=== PATIENT | female | born 1995 | race Caucasian/White ===

== ENCOUNTER → 2017-08-31 14:57 | Outpatient (CLI) | payer OTHER, MEDICAID, SELFPAY ==
--- NOTE | 2017-08-31 15:03 | US_ITS ---
STUDY: SECOND AND THIRD TRIMESTER OBSTETRICAL ULTRASOUND REASON FOR EXAM: Female, 22 years old. Evaluation of anatomy LMP: 04/11/2017 TECHNIQUE: Transabdominal probe was used PRIOR ULTRASOUND: None. FINDINGS: There is a single intrauterine fetus. The fetus is in a cephalic presentation. There is demonstrated cardiac activity with a heart rate of 155 bpm. There is a normal amniotic fluid volume. The largest amniotic fluid pocket measures 7.7 x 3.4 cm cm. The amniotic fluid index (MARELY) is normal. The placenta is posterior There are Grade 0 placental changes. The cervix measures 5.6 cm in length. The bilateral adnexal regions are normal. BIOMETRY: BPD: 4.7 cm: 20 weeks, 2 days HC: 18.2 cm: 20 weeks, 5 days AC: 15.4 cm: 20 weeks, 4 days FL: 3.6 cm: 21 weeks, 4 days CI: 0.74 FL/BPD: 0.77 FL/HC: FL/AC: 0.24 HC/AC: 1.19 age by current US: 20 weeks, 6 days. TRUPTI by current US 01/12/2018 Estimated weight: 86 grams, +/- 56 grams, 80 %. age by LMP 20 weeks, 2 days. TRUPTI by LMP: 01/16/2018 . ANATOMY: Gender: Cranium: Normal lateral ventricles. Normal choroid plexus. Normal cerebellum. Normal cisterna magna. Normal face, nose and lips. Chest: Normal 4-chamber heart. Abdomen/Pelvis: Normal diaphragm. Normal stomach. Normal abdominal wall. Normal cord insertion. Normal 3 vessel cord. Normal kidneys. Normal bladder. Spine: Normal cervical spine. Normal thoracic spine. Normal lumbar spine. Normal sacrum. Extremities: Normal bilateral upper extremities. Normal bilateral lower extremities. US/OB Anatomy Scan IMPRESSION: A live intrauterine in a cephalic presentation with composite measurements averaging out to be equivalent to 20 weeks 6 days +/- 5 days with an expected date of delivery of 01/12/2018. There is an estimated weight of 28 6 g Electronically Signed: Joey Dukes, at 6:22 EDT Tel , Service support ,
== END ==
PROVIDERS: PCP Internal Medicine; Visit Provider Obstetrics & Gynecology
DX: Z34.90 Encounter for supervision of normal pregnancy, unspecified, unspecified trimester (principal)
CPT/HCPCS: 76805

== ENCOUNTER → 2017-10-14 14:25 | Outpatient (CLI) | payer OTHER, MEDICAID, SELFPAY ==
[2017-10-14 16:19] LABS: Glucose Challenge Gest 1H 50g 90 mg/dL (70-140)
== END ==
PROVIDERS: Family Provider Internal Medicine; PCP Internal Medicine; Visit Provider Obstetrics & Gynecology
DX: Z34.80 Encounter for supervision of other normal pregnancy, unspecified trimester (principal)
CPT/HCPCS: 36415; 82950

== ENCOUNTER → 2017-11-10 11:36 | Outpatient (CLI) | payer OTHER, MEDICAID, SELFPAY ==
[2017-11-10 12:24] LABS: Absolute Lymphocyte Count 1.59 X10^3/ul (0.83-4.51); Absolute Neutrophil Count 11.7 X10^3/uL (2.0-7.7); Basophil# 0.02 X10^3/uL; Basophil% 0.1 % (0-1); Eosinophil# 0.08 X10^3/uL; Eosinophils% 0.6 % (0-5); Hematocrit 30.7 % (37-47); Hemoglobin 10.6 g/dl (12.0-15.0); Lymphocyte # 1.59 X10^3/ul (4.0); Mean Corp Hgb Conc 34.5 g/gl (32-36); Mean Corpuscular Hgb 32.1 pg (27.0-32.0); Mean Platelet Vol. 9.4 fl (6.2-12.0); Monocyte# 0.96 X10^3/uL; Monocyte% 6.6 % (0-10); Neutrophil # 11.73 X10^3/uL (2.7-7.7); Neutrophil % 81.2 % (47-70); Platelet Count 256 K/mm3 (150-450); RBC Distribution Width CV 12.8 % (11.6-14.6); RBC Distribution Width SD 41.9 fl (35.1-43.9); White Blood Count 14.5 K/mm3 (4.4-11.0)
[2017-11-10 12:36] LABS: POSITIVE COUNT NO; POSITIVE DIFFERENTIAL NO; POSITIVE MORPHOLOGY NO
== END ==
PROVIDERS: Nurse Practitioner Women's Health; Family Provider Internal Medicine; PCP Internal Medicine; Visit Provider Obstetrics & Gynecology
DX: Z34.80 Encounter for supervision of other normal pregnancy, unspecified trimester (principal)
CPT/HCPCS: 36415; 85025

== ENCOUNTER 2017-12-14 09:55 | Outpatient (CLI) | payer OTHER, MEDICAID, SELFPAY ==
[2017-12-14 10:07] VITALS: BMI 39.3
[2017-12-14 10:40] LABS: Color, Urine Straw (Yellow); Glucose, Dipstick Normal (Normal); Ketone-Dipstick Negative (Negative); Leukocyte Esterase-Dipstick 25 /ul (Negative); Nitrite-Dipstick Negative (Negative); Occult Blood-Urine 10 /ul (Negative); Protein-Dipstick Negative (Negative); Specific Gravity, Urine 1.005 (1.002-1.030); Urine Bilirubin Dipstick Negative (Negative); Urine Clarity Clear (Clear); Urine Urobilinogen Normal (Normal)
[2017-12-14 11:00] LABS: ROM Internal Control Test YES-OK TO RESULT pt. (Internal QC); ROM Patient Test Negative (Negative)
--- NOTE | 2017-12-14 11:24 | US_ITS ---
STUDY: SECOND AND THIRD TRIMESTER OBSTETRICAL ULTRASOUND - LIMITED REASON FOR EXAM: Female, 22 years old. well-being. MARELY. LMP: April 11, 2017. PRIOR ULTRASOUND: August 31, 2017. TECHNIQUE: Transabdominal ultrasound evaluation was performed. FINDINGS: There is a single intrauterine fetus. The fetus is in a breech presentation. There is demonstrated cardiac activity with a heart rate of 150 bpm. There is a normal amniotic fluid volume. The largest amniotic fluid pocket measures 3.91 cm. The amniotic fluid index (MARELY) is 10.62 cm. The placenta is posterior in location and is not low lying. There are Grade 2 placental changes. The cervix is obscured Age by LMP: 35 weeks, 2 days. TRUPTI by LMP: January 16, 2018. age by prior US: 35 weeks, 6 days. TRUPTI by prior US: January 12, 2018. US/OB Limited (No Biometrics) IMPRESSION: 1. Live single intrauterine in a breech presentation. 2. heart rate of 150 bpm. 3. Posterior grade 2 placenta. 4. Breech presentation. Electronically Signed: Hilario Lozano DO at 13:59 EDT Tel [phone], Service support ,
--- NOTE | 2017-12-18 02:45 | OB.TRI.NOTE ---
History of Present Illness Date of Service: 12/14/17 Was patient seen by the physician?: No Reason For Visit: R/O LABOR Allergies No Known Allergies Allergy (Verified 12/14/17 10:40) - Pertinent Past Medical History Medical History: Past Medical History (Last Reviewed 12/08/17 @ 16:20 by Claudine Gonzalez) Migraine Surgical History: Past Surgical History (Last Reviewed 12/08/17 @ 16:20 by Claudine Gonzalez) History of delivery (Acute) repeat csection January 11 Hx of blood transfusion with last CS NST - FHR Rate Baby A Baseline: 130 Variability:: Moderate Accelerations:: 15 x 15 Decelerations:: None NST Reactive:: Yes FHR Category:: Category I Uterine Activity:: q3-5 Impression/Plan false labor no cervical change dc home
== END 2017-12-14 13:55 | disposition home health service (06) ==
LOC: WPOUT 10:05 → WP 10:05
PROVIDERS: Family Provider Internal Medicine; PCP Internal Medicine; Visit Provider Obstetrics & Gynecology
DX: O47.9 False labor, unspecified (principal); Z3A.00 Weeks of gestation of pregnancy not specified
CPT/HCPCS: 59025; 59050; 76815; 81002; 84112; 99218; G0378

== ENCOUNTER → 2017-12-21 17:51 | Outpatient (CLI) | payer OTHER, MEDICAID, SELFPAY ==
[2017-12-21 19:38] LABS: Group B Strep DNA By PCR Negative (Negative); Internal Control PASS; Probe Check PASS; Specimen Processing Control PASS
== END ==
PROVIDERS: Family Provider Internal Medicine; PCP Internal Medicine; Visit Provider Obstetrics & Gynecology
DX: Z34.80 Encounter for supervision of other normal pregnancy, unspecified trimester (principal)
CPT/HCPCS: 87081; 87653

== ENCOUNTER 2018-01-02 07:25 | Inpatient (IN) | payer OTHER, MEDICAID, SELFPAY ==
[2018-01-02] VITALS (22 sets, daily range): BP systolic 114–138; BP diastolic 56–86; PULSE 57–89; RESP 12–20; TEMP 36.2–36.7; O2SAT 97–100; BMI 39.4
[2018-01-02] MEDS: Lactated Ringers 1,000 ML 999 ML IV (07:47)
[2018-01-02 08:08] LABS: Absolute Lymphocyte Count 1.75 X10^3/ul (0.83-4.51); Absolute Neutrophil Count 9.8 X10^3/uL (2.0-7.7); Basophil# 0.01 X10^3/uL; Basophil% 0.1 % (0-1); Eosinophil# 0.09 X10^3/uL; Eosinophils% 0.7 % (0-5); Hematocrit 33.2 % (37-47); Hemoglobin 11.3 g/dl (12.0-15.0); Lymphocyte # 1.75 X10^3/ul (4.0); Lymphocyte % 13.9 % (19-41); Mean Corpuscular Hgb 31.2 pg (27.0-32.0); Mean Corpuscular Volume 91.7 fL (81-99); Mean Platelet Vol. 9.2 fl (6.2-12.0); Monocyte# 0.83 X10^3/uL; Monocyte% 6.6 % (0-10); Neutrophil # 9.82 X10^3/uL (2.7-7.7); Neutrophil % 78.3 % (47-70); Platelet Count 259 K/mm3 (150-450); RBC Distribution Width CV 13.9 % (11.6-14.6); RBC Distribution Width SD 46.2 fl (35.1-43.9); Red Blood Count 3.62 M/mm3 (4.2-5.4); White Blood Count 12.6 K/mm3 (4.4-11.0)
--- NOTE | 2018-01-02 08:08 | HP.PCM_ITS ---
- Problem List (1) PROM (premature rupture of membranes) Status: Acute (2) Anemia affecting Status: Acute Qualifiers: Comment: Add Fe daily (3) Contraception Status: Acute Qualifiers: Comment: Plans paragard IUD at 6 wk pp visit (4) Tobacco abuse Status: Chronic Comment: encouraged cessation (5) Migraine headache Status: Chronic Qualifiers: Comment: improved with chiropractor (6) screening encounter Status: Acute Comment: 1st trim SSQ results to scan (7) History of delivery Status: Acute Comment: repeat csection January 11 Hx of blood transfusion with last CS (8) History of pre-eclampsia in prior , currently in first trimester Status: Acute Comment: recommend baseline labs. 81 mg aspirin (9) Supervision of other normal Status: Acute Comment: PRR TRUPTI 01/16/18 girl [facility] KAVITHA fletcher Draw CBC at appointment on 11/11/17 History Date of Admission: 01/02/18 Final TRUPTI: 01/16/18 Gestational age: 38 Weeks and 0 Days History of this : This is a 22 year-old, at 38 weeks gestational age with PROM. clear fluid .5 cm dilated irregular ctx declines Medical History: Medical History (Last Reviewed 12/28/17 @ 15:41 by Linda Riggs) Migraine G43.909 Surgical History: Surgical History (Last Reviewed 12/28/17 @ 15:41 by Linda Riggs) History of delivery (Acute) Z98.891 repeat csection January 11 Hx of blood transfusion with last CS Allergies No Known Allergies Allergy (Verified 12/28/17 15:40) Home Medications: Home Medications acetaminophen 325 mg tablet 650 mg PO Q4H PRN 07/17/17 Ferrous Sulfate 325 mg PO DAILY 12/14/17 vitamin #56-iron 35 mg and 5 mg-folic acid 1 mg-dha capsule 1 cap PO QHS 01/02/18 Smoking Status: Light Smoker (<10/day) Alcohol: None Number of Fetus(es): 1 Heart Tracin History Past Pregnancies: Past Pregnancies Delivery Date Name GA/Weeks Outcome Route Weight Infant Gender Labor Length Anesthesia Delivery Location Provider FOB Labs: Mom's Labs & Results 01/02/18 01/02/18 07:47 07:47 WBC Pending RBC Pending Hgb Pending Hct Pending MCV Pending MCH Pending MCHC Pending RDW Pending RDW Differential Pending Plt Count Pending Neut % (Auto) Pending Absolute Neuts (auto) Pending Total Counted Pending Blood Type Pending Antibody Screen Pending Social History Smoking Status Light Smoker (<10/day) Expected Delivery Method: Repeat Section Review of Systems Constitutional: Denies: Fever, Malaise Eyes: Denies: Blurred vision, Vision Change HEENT: Denies: Head Aches, Visual Changes Cardiovascular: Denies: Chest Pain, Palpitations Respiratory: Denies: Cough, Shortness of Breath, Wheezing Gastrointestinal: Denies: Abdominal Pain, Diarrhea, Nausea, Vomiting Genitourinary: Denies: Dysuria, Hematuria Musculoskeletal: Denies: Joint Pain, Muscle pain Skin: Denies: Lesions, Rash Neurological: Denies: Blurred vision, Focal weakness, Headaches Psychiatric: Denies: Anxiety, Depression Endocrine: Denies: Heat/ Cold Intolerance Hematologic/ Lymphatic: Denies: Easy Bruising, Easy Bleeding Physical Exam General: Alert, Cooperative, No apparent distress HEENT: Atraumatic, Normocephalic. Negative for: Thyromegaly, Lymphadenopathy Cardiovascular: Regular rate Lungs: Normal air movement Abdomen: Soft, Non Tender, Gravid Neurological: Deep Tendon Reflexes 2+/4 and Symmetrical, Neuro grossly intact. Negative for: Clonus MS ACCESS DATABASE DEVELOPER: Normal external genitalia. Negative for: Vulvar lesions Estimated gestational size: Appropriate for gestational size Presentation: Cephalic Assessment/Plan All Active Problems (Last Reviewed 12/28/17 @ 15:41 by Linda Riggs) PROM (premature rupture of membranes) (Acute) URI (upper respiratory infection) (Acute) Anemia affecting (Acute) Contraception (Acute) screening encounter (Acute) History of delivery (Acute) History of pre-eclampsia in prior , currently in first trimester (Acute) Supervision of other normal (Acute) This is a 22 year-old, at 38 weeks gestational age RPOM plans RLTCS plan RLTCS
[2018-01-02 08:16] LABS: POSITIVE COUNT NO; POSITIVE DIFFERENTIAL NO; POSITIVE MORPHOLOGY NO
[2018-01-02] MEDS: Sodium Citrate/Citric Acid 30 ML UDC PO (08:29)
[2018-01-02] MEDS: Lactated Ringers 1,000 ML 100 ML IV ×2 (08:30→18:20)
--- NOTE | 2018-01-02 08:30 | OP.PCM_ITS ---
Problem List (1) PROM (premature rupture of membranes) Status: Acute (2) Anemia affecting Status: Acute Qualifiers: Comment: Add Fe daily (3) Contraception Status: Acute Qualifiers: Comment: Plans paragard IUD at 6 wk pp visit (4) Tobacco abuse Status: Chronic Comment: encouraged cessation (5) Migraine headache Status: Chronic Qualifiers: Comment: improved with chiropractor (6) screening encounter Status: Acute Comment: 1st trim SSQ results to scan (7) History of delivery Status: Acute Comment: repeat csection January 11 Hx of blood transfusion with last CS (8) History of pre-eclampsia in prior , currently in first trimester Status: Acute Comment: recommend baseline labs. 81 mg aspirin (9) Supervision of other normal Status: Acute Comment: PRR TRUPTI 01/16/18 girl [facility] fletcher Draw CBC at appointment on 11/11/17 Report of Operation Date of Procedure: 01/02/18 Pre-Operative Diagnosis: PROM declined TOLAC Post-Operative Diagnosis: same Surgery/Procedure Performed:: RLTCS Description of Surgical Findings:: normal uterus tubes ovaries registered health nurse: Melissa Ayon Type of Anesthesia:: Spinal Special Medications: ancef Specimen's removed: male infant Drains: major Estimated Blood Loss (mL): 600 Fluids Replaced: crystalloid Description of Procedure: The patient is a 22-year-old at 38 weeks presented with premature rupture of membranes declined trial of labor after for a repeat . Spinal anesthesia was placed without difficulty. Major catheter was placed. The patient was placed in the dorsal supine position with leftward tilt. Patient was prepped and draped in the normal sterile fashion. Pfannenstiel skin incision was made with the scalpel and carried through to the underlying layer of fascia with the scalpel. Fascia was nicked in the midline and the incision extended laterally. The rectus bellies were dissected off superiorly and inferiorly with out complication both sharply and bluntly. The peritoneum was entered digitally. The incision was stretched and a low transverse uterine incision was made with the scalpel. The infant's head was delivered atraumatically followed by the anterior and posterior shoulders without complication the rest of the infant delivered. The cord was clamped and cut and the infant was handed off to awaiting nurse. The placenta was delivered spontaneously immediately following and was noted to be intact and have a three- vessel cord. The uterus was exteriorized cleared of all clots and debris, and the incision was closed in a double layer closure using #1 Monocryl. The uterus was returned to the maternal abdomen and gutters were cleared of all clots and debris. The ovaries and fallopian tubes were noted to be within normal limits. The peritoneum was closed with 3-0 Monocryl in a running fashion. Fascia was closed with 0 PDS in a running fashion. Subcutaneous tissue was copiously irrigated and closed and the skin was closed with 3-0 Monocryl in a subcuticular fashion. Mepilex dressing were applied without complication. Patient was taken to recovery in stable condition. Grafts/Implants Used: none - Admit VTE Documentation VTE Present on Admission: No VTE Mechan Device Prophylaxis: SCD's
[2018-01-02] MEDS: Oxytocin 30 units/NS 500 ml 30 UNITS/500 ML IV.SOLN 167 UNITS IV (08:55)
[2018-01-02] MEDS: Cefazolin 2 GM in 0.9% Normal Saline 100 ML IV (08:55)
[2018-01-02] MEDS: Ondansetron 4 MG/2 ML Vial IV (09:05)
[2018-01-02] MEDS: Ketorolac 30 MG/ML Syringe IV ×3 (09:05→21:17)
[2018-01-02] MEDS: proMETHazine 25 MG/ML Syringe 12.5 MG IV (10:58)
[2018-01-03] VITALS (10 sets, daily range): BP systolic 116–123; BP diastolic 64–79; PULSE 74–93; RESP 16–18; TEMP 36.2–36.6; O2SAT 96–100
[2018-01-03] MEDS: Ketorolac 30 MG/ML Syringe IV ×5 (03:26→23:56)
[2018-01-03 05:30] LABS: Hematocrit 28.7 % (37-47); Hemoglobin 9.7 g/dl (12.0-15.0); Mean Corp Hgb Conc 33.8 g/gl (32-36); Mean Corpuscular Hgb 31.8 pg (27.0-32.0); Mean Corpuscular Volume 94.1 fL (81-99); Mean Platelet Vol. 9.4 fl (6.2-12.0); Platelet Count 224 K/mm3 (150-450); RBC Distribution Width CV 13.9 % (11.6-14.6); RBC Distribution Width SD 45.6 fl (35.1-43.9); Red Blood Count 3.05 M/mm3 (4.2-5.4); White Blood Count 10.4 K/mm3 (4.4-11.0)
[2018-01-03 05:35] LABS: Scan Indicated on CBC? Y/N NO
--- NOTE | 2018-01-03 07:29 | PCM.PN.OB ---
Patient Problems: Active and Suspected Problems (Last Reviewed 12/28/17 @ 15:41 by Linda Riggs) PROM (premature rupture of membranes) (Acute) Subjective: doing well no complaints no cp sob n v - Physical Exam General: Alert, Oriented x3 Vital Signs Temp Pulse Resp BP Pulse Ox 97.9 F 76 18 116/64 97 01/03/18 03:30 01/03/18 06:00 01/03/18 06:00 01/03/18 03:30 01/03/18 06:00 Oxygen Delivery Method Room Air Weight: 215 lb 9.793 oz Body Mass Index (BMI) 39.4 Intake and Output for Last 24 Hours 01/01/18 01/02/18 01/03/18 23:59 23:59 23:59 Intake Total 3882 / 3882 1047 / 1047 Output Total 2300 / 2300 1250 / 1250 Balance 1582 / 1582 -203 / -203 Laboratory Tests Past 24 Hrs 01/02/18 01/02/18 01/03/18 07:47 07:47 05:15 WBC 12.6 H 10.4 RBC 3.62 L 3.05 L Hgb 11.3 L 9.7 L Hct 33.2 L 28.7 L MCV 91.7 94.1 MCH 31.2 31.8 MCHC 34.0 33.8 RDW 13.9 13.9 RDW Differential 46.2 H 45.6 H Plt Count 259 224 MPV 9.2 9.4 Immature Gran % (Auto) 0.400 Neut % (Auto) 78.3 H Lymph % (Auto) 13.9 L [place] % (Auto) 6.6 Eos % (Auto) 0.7 Baso % (Auto) 0.1 Absolute Neuts (auto) 9.8 H Absolute Lymphs (auto) 1.75 Total Counted Not Reportable Blood Type B POSITIVE Antibody Screen NEGATIVE Medical Necessity - Tobacco Use Smoking Status: Current every day smoker Assessment/Plan All Active Problems (Last Reviewed 12/28/17 @ 15:41 by Linda Riggs) PROM (premature rupture of membranes) (Acute) URI (upper respiratory infection) (Acute) Anemia affecting (Acute) Contraception (Acute) screening encounter (Acute) History of delivery (Acute) History of pre-eclampsia in prior , currently in first trimester (Acute) Supervision of other normal (Acute) s/p RLTCS routine care doing well
[2018-01-03] MEDS: 0.9% Saline Lock 10 ML Syringe IV ×3 (08:42→23:56)
[2018-01-04] VITALS: BP 121/78; PULSE 94; RESP 17; O2SAT 98
[2018-01-04] MEDS: oxyCODONE 5 MG Tablet PO ×2 (00:10→08:25)
[2018-01-04] MEDS: Senna/Docusate Sodium 1 Tablet PO ×2 (00:10→08:26)
--- NOTE | 2018-01-04 08:23 | PN.OBGYN_ITS ---
Patient Problems: Active and Suspected Problems (Last Reviewed 12/28/17 @ 15:41 by Linda Riggs ) PROM (premature rupture of membranes) (Acute) Subjective: doingw ell no complaints - Physical Exam General: Alert, Oriented x3 Vital Signs Temp Pulse Resp BP Pulse Ox 97.4 F L 94 17 121/78 H 98 01/03/18 14:00 01/04/18 00:00 01/04/18 00:00 01/04/18 00:00 01/04/18 00:00 Oxygen Delivery Method Room Air Weight: 215 lb 9.793 oz Body Mass Index (BMI) 39.4 Intake and Output for Last 24 Hours 01/02/18 01/03/18 01/04/18 23:59 23:59 23:59 Intake Total 3882 / 3882 1047 / 1047 Output Total 2300 / 2300 2250 / 2250 Balance 1582 / 1582 -1203 / -1203 Medical Necessity - Tobacco Use Smoking Status: Current every day smoker Assessment/Plan All Active Problems (Last Reviewed 12/28/17 @ 15:41 by Linda Riggs) PROM (premature rupture of membranes) (Acute) URI (upper respiratory infection) (Acute) Anemia affecting (Acute) Contraception (Acute) screening encounter (Acute) History of delivery (Acute) History of pre-eclampsia in prior , currently in first trimester (Acute) Supervision of other normal (Acute) s/p RLTCS routine care doing well
--- NOTE | 2018-01-04 08:24 | DCINST_ITS ---
Discharge Diet: No Restrictions Discharge Activity: May Not Drive - for 2 weeks, May not drive while taking narcotic pain medications., May Shower, May Take a Tub Bath - in 7 days May resume sexual activity in: 4-6 weeks Lifting Restrictions: 20 pounds Additional Activity Instructions:: Nothing in the vagina for 4-6 weeks. You may return to work/school in 6 weeks. Call your doctor if your incision/area has: Continuous Slow Oozing, Sudden Increased Bleeding, Increased Pain/ Swelling, Increased Redness, Foul Smelling Discharge Call your doctor if you observe: Fever of 101 or Higher, Using more than one pad per hour - for 2 hours Suture Line Care: Avoid Pulling/Pushing, Avoid Pinching/Bending Cleanse incision/area with: Keep Dressing Clean & Dry Additional Instructions: If you experience any of the following, contact your healthcare provider. * Bleeding that soaks a pad every hour for 2 hours * Fever 100.4 or higher * Unrelieved incision or abdominal pain * Swelling, redness, discharge or bleeding from your incision or episiotomy site * Your incision begins to separate * Problems urinating (including inability to urinate or burning while urinating) . * Visual changes * Severe headache * Flu-like symptoms * Pain or redness in one of both of your breasts * Pain, warmth, tenderness or swelling in your legs, especially the calf area * Frequent nausea and vomiting * Symptoms of depression or anxiety If you experience any of the following, call 911 or go to the nearest Emergency Room. * Chest pain * Problems breathing * Seizure activity * Partial or complete paralysis of a body part, slurred speech, weakness or drooping of the face, or a sudden inability to walk or hold your balance Allergies/Adverse Reactions: Allergies No Known Allergies Allergy (Verified 12/28/17 15:40) Medications to take at Discharge acetaminophen 325 mg tablet 650 mg PO Q4H PRN 07/17/17 Ferrous Sulfate 325 mg PO DAILY 12/14/17 vitamin #56-iron 35 mg and 5 mg-folic acid 1 mg-dha capsule 1 cap PO QHS 01/02/18 Naproxen [Naprosyn] 250 - 500 mg PO Q8H PRN PRN #30 tab 01/04/18 Oxycodone HCl/Acetaminophen [Percocet 5-325] 1 - 2 tablet PO Q4H PRN PRN 7 Days #28 tablet 01/04/18 The following prescriptions were given: Oxycodone HCl/Acetaminophen [Percocet 5-325] 1 - 2 tablet PO Q4H PRN PRN 7 Days #28 tablet PRN Reason: Moderate-Severe pain Naproxen [Naprosyn] 250 - 500 mg PO Q8H PRN PRN #30 tab PRN Reason: MILD PAIN Follow-Up: Call to make an appointment with your doctor for an incision check in 1-2 weeks. You will also need a 6 week post- follow up appointment. Test results from this visit will be discussed in further detail at your follow- up appointment, if applicable. Please Follow Up With: Aliyah Mac MD - Call to make an appointment for an incision check in 1-2 [phone] When: You will need a post- check in 6 weeks. Primary Care Physician: Chito Rodriguez MD [Primary Care Provider] -
[2018-01-04 10:00] VITALS: BP 121/79; PULSE 78; RESP 16; TEMP 36.6
== END 2018-01-04 10:00 | disposition home or self-care (01) | DRG 766 ==
PROVIDERS: Admitting Provider Obstetrics & Gynecology; Family Provider Internal Medicine; PCP Internal Medicine; Visit Provider Obstetrics & Gynecology
DX: O42.92 Full-term premature rupture of membranes, unspecified as to length of time between rupture and onset of labor (principal); Z37.0 Single live birth; O34.211 Maternal care for low transverse scar from previous cesarean delivery; O99.334 Smoking (tobacco) complicating childbirth; Z3A.38 38 weeks gestation of pregnancy; Z87.59 Personal history of other complications of pregnancy, childbirth and the puerperium; O99.214 Obesity complicating childbirth; E66.01 Morbid (severe) obesity due to excess calories; Z68.39 Body mass index [BMI] 39.0-39.9, adult; O99.02 Anemia complicating childbirth; D64.9 Anemia, unspecified
CPT/HCPCS: 59025; 85025; 85027; 86850; 86900; 99218; J7120; A4216; G0378; J2405

== ENCOUNTER → 2018-02-11 18:17 | Outpatient (CLI) | payer OTHER, MEDICAID, SELFPAY ==
[2018-02-17 08:12] LABS: HPV Reflexed? NOT INDICATED
== END ==
PROVIDERS: Visit Provider Obstetrics & Gynecology
DX: Z12.4 Encounter for screening for malignant neoplasm of cervix (principal)
CPT/HCPCS: 88175; G0145

== ENCOUNTER → 2018-09-21 14:00 | Outpatient (CLI) | payer OTHER, MEDICAID, SELFPAY ==
[2018-09-21 08:57] VITALS: BMI 29.0
== END ==
PROVIDERS: Referring Provider Physician Assistant Surgical; Visit Provider Physician Assistant Surgical
DX: J02.9 Acute pharyngitis, unspecified (principal)
CPT/HCPCS: 87081

== ENCOUNTER → 2019-07-18 15:45 | Outpatient (CLI) | payer BC, MEDICAID, SELFPAY ==
[2019-07-18 15:20] VITALS: BMI 29.0
== END ==
PROVIDERS: PCP Internal Medicine; Referring Provider Nurse Practitioner Women's Health; Visit Provider Nurse Practitioner Women's Health
DX: N89.8 Other specified noninflammatory disorders of vagina (principal)
CPT/HCPCS: 87070; 87106; 87205

== ENCOUNTER 2020-12-28 19:21 | Emergency (ER) | payer OTHER, MEDICAID, SELFPAY ==
[2019-07-18 15:20] VITALS: BMI 29.0
[2020-12-28 19:28] VITALS: BP 148/68; PULSE 83; RESP 16; TEMP 36.6; O2SAT 98; BMI 30.2
--- NOTE | 2020-12-28 19:35 | RAD_ITS ---
STUDY: X-RAY - LEFT WRIST REASON FOR EXAM: Female, 25 years old. fall TECHNIQUE: 3 view(s) of the wrist were obtained. COMPARISON: None. FINDINGS: Normal visualized distal radius and ulna. Normal radiocarpal articulation. Normal distal radioulnar articulation. Normal carpal bones. Normal carpal articulations. Normal carpometacarpal articulation of the thumb. Normal second through fifth carpometacarpal articulations. Normal visualized metacarpal bones. The soft tissue structures are unremarkable. There is no demonstrated acute fracture. RAD/Wrist min 3 Views IMPRESSION: Normal x-ray examination of the wrist. Electronically Signed: Guille Rodriguez MD at 20:53 EDT , Service support ,
--- NOTE | 2020-12-28 19:58 | ED.RN ---
[facility] LEFT MESSAGE X2.
--- NOTE | 2020-12-28 21:55 | EX.ED.UPPERE ---
HPI History of Present Illness Chief Complaint: Upper Extremity Injury Informant: patient Narrative Narrative: Patient is a 25-year-old previously healthy female who presents to the emerge department for injury to left wrist. She states that she tripped over something at work and landed on her outstretched hand. She currently rates pain a 7 out of 10. She does not take anything for it. She denies any other injury. She not strike her head. No neck or back pain. No chest pain or shortness of breath. Any movement of the wrist seems to make it worse. She does get some pain radiating up the forearm. [facility] Medical History (Updated 12/28/20 @ 22:[address] Ko Lloyd DO) Anemia Migraine Home Medications fluconazole 150 mg tablet 150 mg PO .COMPLEX #2 tab 07/20/19 [Rx Last Taken Unknown] metronidazole 500 mg tablet 500 mg PO BID #14 tab 07/24/19 [Rx Last Taken Unknown] Allergy/AdvReac Type Severity Reaction Status Date / Time No Known Allergies Allergy Verified 12/28/20 19:31 Family History Mother Cancer pancreatic Father Hypertension Migraines Grandmother Migraines Uncle Migraines Aunt Migraines Surgical History History of History of delivery Social History Smoking Status: Current every day smoker tobacco type: cigarettes alcohol intake: current alcohol intake frequency: holidays/special occasions only Alcohol type: beer substance use type: does not use caffeine: No what type of physical activity do you participate in: walking frequency: daily seatbelt use: always do you feel safe at home: Yes additional social history: [id number] patient works at [employer] ED Constitutional Constitutional ED: Denies chills or fever(s) Eyes Eyes: Denies change in vision ENT ENT ED: Denies epistaxis or rhinorrhea Cardiovascular Cardiovascular: Denies chest pain or palpitations Respiratory/Chest Respiratory/Chest: Denies cough, dyspnea or dyspnea on exertion Gastrointestinal Gastrointestinal: Denies abdominal pain, diarrhea, nausea or vomiting Musculoskeletal Musculoskeletal: Denies back pain or neck pain Integumentary Denies rash Neurologic Neurologic: Denies dizziness, headache(s) or weakness EXAM Physical Exam Const Vital Signs: 12/28/20 19:28 Temperature 97.8 F Temperature Source Temporal Pulse Rate 83 Respiratory Rate 16 Blood Pressure 148/68 H Blood Pressure Mean 94 Pulse Ox 98 Oxygen Delivery Method Room Air Positive well nourished and well developed General Appearance ED: well developed and NAD HEENT Reports normocephalic, head/scalp atraumatic and moist mucous membranes Eyes PERRL and EOMs intact bilaterally Neck supple General: Negative for tenderness Resp normal respiratory effort and clear to auscultation bilaterally Auscultation: Negative for rales, rhonchi or wheezes Cardio regular rate, regular rhythm and no murmurs Extremity normal to inspection Extremity Narrative: Mild swelling to left distal forearm/wrist. No snuffbox tenderness. Full range of motion of wrist. No obvious deformity. Neurovascularly intact. 2+ radial pulse. Brisk capillary refill. General Extremety ED: Negative for edema or tenderness General Extremity: Negative for edema Neuro no sensory deficits noted Sensorium / Orientation: alert Motor Exam: strength 5/5 throughout Psych mental status grossly normal Skin no rashes or lesions noted MDM MDM MDM Narrative Medical decision making narrative: Patient presents to the emergency department for fall onto outstretched hand. She is complaining of wrist pain currently. Will check x-ray of the wrist and forearm. Patient is declining anything for pain at this time. Patient's x-ray of wrist and forearm interpreted by myself. No obvious fracture or dislocation appreciated. Patient's imaging did not reveal any acute traumatic findings. Will recommend symptomatic treatment with [id number] pain medication, splinting, rice. Will discharge home in stable condition. Return precautions are reviewed. She otherwise is to follow-up with her PCP. All questions were answered. Radiography Diagnostic Testing: Radiology Impression Wrist X-Ray 12/28/20 19:35 IMPRESSION: Normal x-ray examination of the wrist. Electronically Signed: Guille Rodriguez MD at 20:53 EDT , Service support , Discharge Plan Triage Chief Complaint: Upper Extremity Injury ED Provider: Ko Lloyd Dx/Rx/DC Orders Clinical Impression: Acute wrist pain Instructions: ED Wrist Sprain Prescriptions: No Action fluconazole 150 mg tablet 150 mg PO .COMPLEX Qty: 2 RF: 0 metronidazole [Flagyl] 500 mg tablet 500 mg PO BID Qty: 14 RF: 0 Primary Care Provider: Care Physician,No Primary Referrals: Care Physician,No Primary [Primary Care Provider] - 1 Week if not improving Disposition Disposition: Home, Self Care Discharge Date/Time: 12/28/20 22:46
--- NOTE | 2020-12-28 22:00 | RAD_ITS ---
EXAM: XR LEFT FOREARM, 2 VIEWS : 1995 CLINICAL INDICATION: fall, inj TECHNIQUE: Frontal and lateral views of the left forearm. This report was created using [employer] report generation technology. COMPARISON: None. FINDINGS: BONES/JOINTS: Unremarkable. No acute fracture. No dislocation. SOFT TISSUES: Ulnar soft tissue swelling of the distal forearm. RAD/Forearm 2 Views IMPRESSION: Ulnar soft tissue swelling of the distal forearm. at 2227 Reported and signed by: Vladislav Heredia MD Electronically Signed: Vladislav Heredia MD at 22:26 EDT Tel , Service support ,
[2020-12-28 22:43] VITALS: BP 133/77; PULSE 74; RESP 16; O2SAT 99
== END 2020-12-28 22:46 | disposition home or self-care (01) ==
PROVIDERS: Emergency Provider Emergency Medicine
DX: M25.532 Pain in left wrist (principal); F17.210 Nicotine dependence, cigarettes, uncomplicated; W01.0XXA Fall on same level from slipping, tripping and stumbling without subsequent striking against object, initial encounter
CPT/HCPCS: 73090; 73110; 99282

== ENCOUNTER → 2021-06-12 16:15 | Outpatient (CLI) | payer MEDICAID, SELFPAY ==
[2021-06-18 00:06] LABS: Chlamydia By Nucleic Acid AMP Negative (Negative)
[2021-06-18 09:16] LABS: Gonococcus By Nucleic Acid AMP Negative (Negative)
[2021-06-20 16:14] LABS: HPV Reflexed? NOT INDICATED
== END ==
PROVIDERS: Referring Provider Nurse Practitioner Women's Health; Visit Provider Nurse Practitioner Women's Health
DX: N76.0 Acute vaginitis (principal); Z12.4 Encounter for screening for malignant neoplasm of cervix; Z11.3 Encounter for screening for infections with a predominantly sexual mode of transmission
CPT/HCPCS: 87070; 87205; 87491; 87591; 88175; G0145

== ENCOUNTER 2021-07-18 15:29 | Outpatient (CLI) | payer MEDICAID, SELFPAY ==
--- NOTE | 2021-07-18 | IMM_PTH ---
PATIENT: IVANIA DHILLON LOC: [facility] U#:[id number] AGE/SX: ROOM: RE07/18/[address]: Dr. Estela Byrd DO : 1995 BED: DIS: 07/18/2021 SPEC #: [id number] RECD: 07/22/21 12:09 STATUS: ROBBY REShadia #: [id number] SAGE: 07/18/21 00:[address]: Estela Byrd DEPT: IMMUNOHISTOCHEMISTRY RECD BY: Louisa Alvarado ENTERED: 07/22/21 12:10 SP TYPE: IMMUNO OTHR DR: Cassy Primary Care Phys Tissues: B - Uterine cervix, NOS Procedures: p16 (initial) KI-67 (add) PHYSICIAN & INSTITUTION [facility] [phone] SPECIMEN INFORMATION: Tissue Source: B ? Cervix 9 o?clock Clinical Info: JORGE Specimen Number: [id number] CPT code: 23731, 80794 METHODOLOGY: Deparaffinized sections of prefer/formalin-fixed tissue or PAP/DQ stained slides are incubated with monoclonal/polyclonal antibodies/oligonucleotide probes. Localization is made via biotin free immunoperoxidase method. Appropriate controls are performed and reacted as expected. Results on target cell population are indicated in the following table: RESULTS: ANTIBODY / CLONE RESULT Block B P16 (E6H4) positive, rare cells Ki-67 (30-9) positive, low These tests were developed and their performance characteristics determined by [facility]. They may not have been cleared or approved by the [place]. Food and Drug Administration. The FDA has determined that such clearance or approval is not necessary. The above immunohistochemical/dualISH markers are ordered and reviewed by the Pathologist. INTERPRETATION: B. Cervix at 9 o?clock, biopsy: Suspicious for HPV change. AM:fransico 07/23/2021
--- NOTE | 2021-07-18 14:30 | CER_PTH ---
PATIENT: IVANIA DHILLON LOC: [facility] U#:[id number] AGE/SX: ROOM: RE07/18/[address]: Dr. Estela Byrd DO : 1995 BED: DIS: 07/18/2021 SPEC #: [id number] RECD: 07/18/21 15:25 STATUS: ROBBY OTF #: [id number] SAGE: 07/18/21 14:[address]: Estela Byrd DEPT: SURGICAL PATHOLOGY RECD BY: Alondra Mcclain ENTERED: 07/19/21 08:00 SP TYPE: CERV OTHR DR: Cassy Primary Care Phys Tissues: A - Endocervical B - Uterine cervix, NOS Procedures: Surgery Specimen Level IV HEADER OPERATION: Colposcopy PRE-OP DIAGNOSIS: LGSIL TISSUE SUBMITTED: A ? ECC, B ? Cervix 9 o?clock MICROSCOPIC DIAGNOSIS A. Endocervix, curettings (cell block): Scant strips of benign superficial endocervix. B. Cervix at 9 o?clock, biopsy: Focal changes suspicious for HPV cytopathic change. See comment. AM:fransico 07/22/2021 COMMENT B. Results from immunohistochemistry ([id number]) for surrogate HPV marker (p16) will be reported separately. MICROSCOPIC DESCRIPTION Slides are reviewed. GROSS DESCRIPTION A - Received in fixative is one container labeled with the patient's name and designated ECC. The specimen consists of a scant amount of soft tissue. The specimen is totally submitted for cell block preparation. B - Received in fixative is one container labeled with the patient's name and designated cervix 9 o'clock. The specimen consists of one irregular fragment of light singh soft tissue that measures 0.3 x 0.3 x 0.1 cm. The specimen is totally submitted in one cassette. / LUCIEN:fransico 07/19/2021 TC:3 CPT: 52620 x2
== END 2021-07-18 23:59 | disposition short-term general hospital (02) ==
LOC: LABSPEC 15:30
PROVIDERS: Visit Provider Obstetrics & Gynecology
DX: R87.612 Low grade squamous intraepithelial lesion on cytologic smear of cervix (LGSIL) (principal)
CPT/HCPCS: 88305; 88341; 88342